=== PATIENT | male | born 1965 | race Two or more races ===

== ENCOUNTER 2024-11-15 11:06 | Emergency (ER) | payer MEDICAID, SELFPAY ==
[2024-11-15 11:07] VITALS: BMI 23.6
[2024-11-15 11:15] VITALS: BP 202/85; PULSE 67; RESP 19; TEMP 36.6; O2SAT 97
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
[2024-11-15] MEDS: MORPHINE SULF INJ 10 MG/ML VIAL 6 MG IVP (11:34)
[2024-11-15] MEDS: ONDANSETRON INJ 2 MG/ML INJ 2 ML 4 MG IV (11:34)
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
[2024-11-15] MEDS: DIPHTH,PERTUSS(ACELL),TET VAC 0.5 ML VIAL IMi (11:35)
[2024-11-15] MEDS: SODIUM CHLORIDE 0.9% 1000 ML 1,000 ML 999 ML IV (11:35)
--- NOTE | 2024-11-15 11:39 | PC.NURSE ---
I WAS NOT ABLE TO SCAN MEDS, SCANNER NOT WORKING
[2024-11-15] MEDS: MORPHINE SULF INJ 10 MG/ML VIAL 4 MG IVP (12:05)
[2024-11-15] MEDS: BACITRACIN OINT 15 GM TUBE TOP (12:22)
[2024-11-15 12:45] VITALS: BP 166/84; PULSE 62; RESP 17; O2SAT 97
[2024-11-15 14:34] VITALS: BP 144/66; PULSE 60; RESP 18; TEMP 36.6; O2SAT 97
== END 2024-11-15 15:45 | disposition home or self-care (01) ==
PROVIDERS: Emergency Provider Emergency Medicine; PCP Physician Assistant
DX: T23.261A Burn of second degree of back of right hand, initial encounter (principal); T23.291A Burn of second degree of multiple sites of right wrist and hand, initial encounter; T31.0 Burns involving less than 10% of body surface; W40.1XXA Explosion of explosive gases, initial encounter; Z23 Encounter for immunization
CPT/HCPCS: 16020; 90471; 90715; 96374; 96375; 99284; J2270; J2405; J7030

== ENCOUNTER 2024-11-17 11:29 | Emergency (ER) | payer MEDICAID, SELFPAY ==
[2024-11-17 12:26] VITALS: BP 158/73; PULSE 64; RESP 19; TEMP 36.7; O2SAT 97; BMI 25.9
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
== END 2024-11-17 19:08 | disposition home or self-care (01) ==
LOC: SERX 13:17
PROVIDERS: Emergency Provider Emergency Medicine
DX: T23.201D Burn of second degree of right hand, unspecified site, subsequent encounter (principal); T31.0 Burns involving less than 10% of body surface
CPT/HCPCS: 99281

== ENCOUNTER 2025-03-21 14:57 | Emergency (ER) | payer MEDICAID, SELFPAY ==
[2025-03-21 15:08] VITALS: BP 152/71; PULSE 66; RESP 18; TEMP 36.9; O2SAT 96
--- NOTE | 2025-03-21 15:12 | XR_ITS ---
Examination: Foot bilateral, 6 views Technique: AP, oblique, lateral views each foot total 6 views Date and time of exam: March 21, 2025 1552 hours INDICATIONS: Redness swelling and pain involving both feet this week. FINDINGS: Significant osteopenia Soft tissue vascular calcification. No cortical bone destruction involving either foot No foreign bodies IMPRESSION: No cortical bone destruction
--- NOTE | 2025-03-21 15:12 | PD.EDRME ---
Rapid Medical Screening Exam RME Arrival date/time: 03/21/25 14:57 59-year-old male presents to the emergency room today for complaints of infection to bilateral feet patient ports having diabetes Chief Complaint: Extremity Problem,Nontraumatic Vital signs: Vital Signs Temperature 98.5 F 03/21/25 15:08 Pulse Rate 66 03/21/25 15:08 Respiratory Rate 18 03/21/25 15:08 Blood Pressure 152/71 H 03/21/25 15:08 Pulse Oximetry (%) 96 03/21/25 15:08 Oxygen Delivery Method Room Air 03/21/25 15:08
[2025-03-21 15:30] LABS: Lactate (Lactic Acid) 1.6 mMol/L (0.4-2.0)
[2025-03-21 15:35] LABS: Basophils % (Auto) 1 % (0-2.5); Eosinophils # (Auto) 0.4 Thou/mm3 (0.0-0.5); Eosinophils % (Auto) 7 % (0-10); Hematocrit 37.5 % (41.0-53.0); Hemoglobin 13.1 g/dL (13.5-16.0); Immature Granulocytes % (Auto) 0 % (0-0); Immature Granulocytes Auto 0.02 Thou/mm3 (0.00-0.00); Lymphocytes # (Auto) 2.5 Thou/mm3 (1.0-4.8); Lymphocytes % (Auto) 39 % (10-50); Mean Corpuscular HGB Conc 34.9 g/dl (31.0-37.0); Mean Corpuscular Volume 95 fL (80-100); Monocytes # (Auto) 0.5 Thou/mm3 (0.0-0.8); Monocytes % (Auto) 8 % (0-12); Neutrophils # (Auto) 2.8 Thou/mm3 (1.8-7.7); Neutrophils % (Auto) 45 % (37-80); Nucleated Red Blood Cell % 0 /100 WBC (0); Platelet Count 139 Thou/mm3 (140-440); RDW Standard Deviation 43.9 fL (35.1-43.9); Red Blood Count 3.97 Miln/mm3 (4.50-5.90); White Blood Count 6.3 Thou/mm3 (3.8-10.6)
[2025-03-21 15:47] LABS: Glucose Estimated Average 180 mg/dL (80-131); Hemoglobin A1C 7.9 % Hgb (4.8-6.0); Partial Thromboplastin Time 25.1 Seconds (22.0-36.0); Prothrombin Time 10.9 Seconds (9.0-12.2)
[2025-03-21 16:04] LABS: Alanine Aminotransferase 48 U/L (10-49); Albumin, Serum 4.3 gm/dL (3.5-5.0); Albumin/Globulin Ratio 1.6 (1.2-2.2); Alkaline Phosphatase 206 U/L (46-116); Anion Gap 9 (7-16); Aspartate Amino Transferase 48 U/L (0-34); BUN/Creatinine Ratio 17 Ratio (12-20); Bilirubin,Total 1.1 mg/dL (0.3-1.2); Blood Urea Nitrogen 17 mg/dL (9-23); C-Reactive Protein < 0.5 mg/dL (0.0-0.9); Calcium 8.7 mg/dL (8.3-10.6); Calcium (Corrected) 8.7 mg/dL (8.5-10.1); Carbon Dioxide 24.3 mMol/L (20.0-31.0); Chloride 105 mMol/L (98-107); Globulin 2.7 gm/dL (2.3-3.5); Glucose 192 mg/dL (74-106); Osmolality,Calculated 282 (275-295); Potassium 4.1 mMol/L (3.4-5.1); Sodium 138 mMol/L (136-145); eGFR > 60 See Note
[2025-03-21 18:31] LABS: Sed Rate (ESR) 12 mm/hr (0-20)
[2025-03-21 19:05] VITALS: BP 173/83; PULSE 57; RESP 18; TEMP 36.6; O2SAT 98
--- NOTE | 2025-03-21 19:09 | EDNOTE_ITS ---
ED Extremity Problem RME/HPI General Chief complaint: Extremity Problem,Nontraumatic Stated complaint: BOTH FEET BURN, L) GREAT TOE MESSINA THE WORST Time Seen by Provider: 03/21/25 19:00 Arrival date/time: 03/21/25 14:57 60 year old male presents to the ED with a complaint of a 2 year wound to L great toe, is better now. 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 New boots 3-4 years ago. He comes in tonight due to pain pills not working. Taking DM meds 1x daily as prescribed. No F/C N/V/D. Unknown name of DM or pain med. No wound care [place] prev. RME / HPI RME / HPI Narrative: 03/21/25 14:57 59-year-old male presents to the emergency room today for complaints of infection to bilateral feet patient ports having diabetes Related Data Previous Rx's ?Medication ?Instructions ?Recorded meloxicam 7.5 mg tablet 7.5 mg PO QDAY #14 tabs 12/09 gabapentin 300 mg tablet,extended 300 mg PO QPM Diabet ic neuropathy 03/21/25 release 24 hr #30 tabs Allergies Allergy/AdvReac Type Severity Reaction Status Date / Time No Known Allergies Allergy Verified 03/21/25 15:04 Review of Systems Review of Systems Systems Reviewed: All systems reviewed, normal except as documented Past Medical History Past Medical History CARDIAC: Positive Hypertension; Negative Congestive Heart Failure RESPIRATORY: Negative Chronic Obstructive Pulmonary Disease (COPD) GENITOURINARY: Negative Renal Disease ENDOCRINE: Positive Diabetes Mellitus Type 2; Negative Diabetes Mellitus Type 1 Family History FAMILY HISTORY: Negative Family Cardiac Disorders Social History SMOKING STATUS: Never smoker SUBSTANCE USE: does not use ED Exam Narrative Physical exam: Alert and oriented 60 year old male, no acute distress. Vital signs stable with the exception of an elevated Systolic BP of 152/71. Lungs are clear. RRR. MAEW. Pressure ulcer noted to the left great toe and smaller pressure ulcer noted to the right great toe. No drainage or tenderness noted. Course Course Course Narrative: Wounds were cleansed and dressing applied. Xray of the Bilateral feet reveal: Significant osteopenia. Soft tissue vascular calcification. No cortical bone destruction involving either foot. No foreign bodies. IMPRESSION: No cortical bone destruction Labs reveal no elevation of white count. ESR is normal at 12. Lactic is normal at 1.6. Procalc is normal at 0.10. Coags are normal. AIc is 7.9 and glucose is elevated at 192. Renal and liver function are normal. Alk Phose is elevated at 206. Blood cultures are pending. Quality Measures none Orders Category Date Time Status Wound Care NOW Care 03/21/25 19:27 Completed XR foot comp BI min 3V Stat Exams 03/21/25 15:12 Completed A1C [Glycohemoglobin w (eAG)] Stat Lab 03/21/25 15:24 Completed Blood Culture (Lab) Stat Lab 03/21/25 15:24 Completed CBC Stat Lab 03/21/25 15:24 Completed CMP [Comprehensive Metabolic Panel] Stat Lab 03/21/25 15:24 Completed CRP [C-Reactive Protein] Stat Lab 03/21/25 15:24 Completed ESR [Sed Rate (ESR)] Stat Lab 03/21/25 15:24 Completed Lactic Acid [Lactate (Lactic Acid)] Stat Lab 03/21/25 15:24 Completed PT [Prothrombin Time with INR] Stat Lab 03/21/25 15:24 Completed PTT [Partial Thromboplastin Time] Stat Lab 03/21/25 15:24 Completed Procalcitonin Stat Lab 03/21/25 15:24 Completed Vital Signs Vital signs: Vital Signs Temperature 98.5 F 03/21/25 15:08 Pulse Rate 66 03/21/25 15:08 Respiratory Rate 18 03/21/25 15:08 Blood Pressure 152/71 H 03/21/25 15:08 Pulse Oximetry (%) 96 03/21/25 15:08 Oxygen Delivery Method Room Air 03/21/25 15:08 Extremity Problem MDM Narrative MDM Narrative:: 60 year old male presents to the ED with a complaint of a 2 year wound to L great toe, is better now. 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 New boots 3-4 years ago. He comes in tonight due to pain pills not working. Taking DM meds 1x daily as prescribed. No F/C N/V/D. Unknown name of DM or pain med. No wound care [place] prev. Alert and oriented 60 year old male, no acute distress. Vital signs stable with the exception of an elevated Systolic BP of 152/71. Lungs are clear. RRR. MAEW. Pressure ulcer noted to the left great toe and smaller pressure ulcer noted to the right great toe. No drainage or tenderness noted. Wounds were cleansed and dressing applied. Xray of the Bilateral feet reveal: Significant osteopenia. Soft tissue vascular calcification. No cortical bone destruction involving either foot. No foreign bodies. IMPRESSION: No cortical bone destruction Labs reveal no elevation of white count. ESR is normal at 12. Lactic is normal at 1.6. Procalc is normal at 0.10. Coags are normal. AIc is 7.9 and glucose is elevated at 192. Renal and liver function are normal. Alk Phose is elevated at 206. Blood cultures are pending. Patient referred to Wound Care. Patient data External records reviewed:: [facility] previous records Clinical information provided by:: patient Social determinants that could affect healthcare access:: none Patient has the following chronic illnesses:: DM How is presenting disease/condition affected by chronic disease/condition?: exacerbated by Evaluation data The following diagnostics were reviewed and interpreted by me:: lab results and radiology exam(s) Lab and/or radiology exams considered but not ordered:: N/A Interpretation Summary: As noted above. Medications / Prescriptions Medications or Prescriptions considered but not ordered:: N/A Medication administrations:: N/A Consultations Consultation(s) initiated? (list below): No Diagnosis Extremity Problem Differential Diagnosis: gout and cellulitis Most likely diagnosis given after review of the tests above:: Osteomyelitis, Diaetic Ulcer Admission Indicated Admission indicated?: not indicated Explain why admission is indicated or not indicated:: Stable for discharge. Admission Request Was there a request for admission?: No Disposition Plan Disposition Plan: Discharge Discharge Attestation Discharge Attestation: The patient and all family members were given an opportunity to ask questions and understood the discharge instructions. Discharge instructions specifically effects, indications for sooner follow up or return to the emergency department, and the expected course of current diagnosis. Patient condition: Stable Discharge Plan Plan Patient Disposition: HOME (Self Care) Discharge Disposition comment: Stable Prescriptions/Referrals Prescriptions/Med Rec: New gabapentin 300 mg tablet extended release 24 hr 300 mg PO QPM Qty: 30 0RF No Action meloxicam 7.5 mg tablet 7.5 mg PO QDAY Qty: 14 0RF Referrals: [facility] [Other] - In 1 week (Contact the [facility] to make an appointment for ongoing wound care.) Javier Louise [Primary Care Provider] - In 1 week Problem List Clinical Impression: Diabetic foot ulcer associated with type 2 diabetes mellitus, Diabetic neuropathy Patient/Caregiver Discharge Instructions Education Materials: Diabetes: Keeping Feet Healthy, ED Pressure Injury, Simple, Diabetic Neuropathy Additional Instructions: Follow-up with your primary care physician in 24 to 48 hours. Return to the ED for any new or worsening symptoms. Print Language: Argentine Stand Alone Forms: Emilia Award Info., Patient Portal Info Letter PA/DIRECTOR BIOLOGICS Supervising Physician PA/DIRECTOR BIOLOGICS Supervising Physician: Dr. Gong
== END 2025-03-21 20:01 | disposition home or self-care (01) ==
PROVIDERS: Nurse Practitioner Primary Care; Emergency Provider Emergency Medicine; PCP Physician Assistant
DX: E11.621 Type 2 diabetes mellitus with foot ulcer (principal); L97.529 Non-pressure chronic ulcer of other part of left foot with unspecified severity; L97.519 Non-pressure chronic ulcer of other part of right foot with unspecified severity; E11.40 Type 2 diabetes mellitus with diabetic neuropathy, unspecified; Z79.84 Long term (current) use of oral hypoglycemic drugs
CPT/HCPCS: 36415; 73630; 80053; 83036; 83605; 84145; 85025; 85610; 85652; 85730; 86140; 87040; 99283